=== PATIENT | female | born 2005 | race Caucasian/White ===

== ENCOUNTER → 2024-04-16 14:23 | Outpatient (REF) | payer BC, SELFPAY ==
[2024-04-16 15:02] LABS: % Basophils 0.5 % (0-2); % Eosinophils 5.6 % (0-6); % Immature Granulocytes 0.3 % (0-0.5); % Lymphocytes 7.2 % (20.5-51.1); % Monocytes 3.9 % (1.7-9.3); % Neutrophils 82.5 % (42.2-75.2); Absolute Eosinophils 0.4 10^3/uL (0-0.7); Absolute Lymphocytes 0.5 10^3/uL (1.2-3.4); Absolute Monocytes 0.3 10^3/uL (0.1-0.6); Absolute Neutrophils 6.2 10^3/uL (1.4-6.5); Hematocrit 41.8 % (37.0-47.0); Hemoglobin 13.7 g/dL (12.0-16.0); Mean Corp Hgb Conc. 32.8 g/dL (33.0-37.0); Mean Corpuscular Hgb 29.4 pg (27.0-31.0); Mean Corpuscular Volume 89.7 fL (81.0-99.0); Mean Platelet Volume 10.2 fL (7.4-10.4); Nucleated Red Blood Cells % 0 %; Platelet Count 177 10^3/uL (130-400); Red Blood Cell Count 4.66 10^6/uL (4.20-5.40); Red Cell Dist. Width 12.9 % (11.5-14.5); White Blood Cell Count 7.5 10^3/uL (4.8-10.8)
[2024-04-16 16:15] LABS: Erythrocyte Sed Rate 10 mm/hour (0-20)
[2024-04-18 22:55] LABS: ANA, IgG Reflex to HEp-2 None Detected (None Detected)
== END ==
LOC: REG 14:23
PROVIDERS: ATTENDING PHYSICIAN Orthopaedic Surgery; FAMILY PHYSICIAN Nurse Practitioner Family
DX: M76.52 Patellar tendinitis, left knee (principal); M25.562 Pain in left knee; M62.9 Disorder of muscle, unspecified; M92.522 Juvenile osteochondrosis of tibia tubercle, left leg
CPT/HCPCS: 36415; 85025; 85652; 86038; 86140; 86430; 86618

== ENCOUNTER → 2024-06-01 08:39 | Outpatient (REF) | payer BC, SELFPAY | LOC: RAD 08:39 | PROVIDERS: ATTENDING PHYSICIAN Nurse Practitioner Family | DX: M41.124 Adolescent idiopathic scoliosis, thoracic region (principal) | CPT/HCPCS: 72072 ==

== ENCOUNTER 2025-03-18 09:08 | Emergency (ER) | payer BC, SELFPAY ==
[2025-03-18] VITALS (18 sets, daily range): BP systolic 85–101; BP diastolic 55–72; PULSE 62–75; BMI 23.8
--- NOTE | 2025-03-18 09:58 | ED.GENMED ---
History of Present Illness
General
Chief Complaint: Fainting/Passed Out
Time Seen by Provider: 03/18/25 09:10
History of Present Illness
History of Present Illness:
19-year-old female without significant past medical history presenting to the emergency department after a syncopal episode. Patient reports that she has scoliosis so she was at outpatient x-ray to get a routine x-ray. Prior to the x-ray, had
laboratory analysis drawn. Does note that she has issues with needlesticks. She got the blood work completed. She stood up to go to the x-ray and then started to feel lightheaded. She was then sat down and had a syncopal episode. Patient was
then brought to the ER for further evaluation. She notes that she is feeling much better. Per staff that brought her over, patient was out for several minutes. Does note that she has had syncopal episodes in the past, however nothing recent.
Does note that she did not eat anything prior to arrival. Denies any prodromal chest pain or difficulty breathing. Denies fever or recent illness. Denies additional acute medical complaints
Phy Exam
Physical Exam
Physical Exam:
General: Well-appearing, no clinical signs of dehydration, nontoxic and in no acute distress
HEENT: protecting airway
Neck: appears supple
CV: Normal heart rate, regular rhythm, no evidence of cyanosis
Resp: No accessory muscle use, no increased work of breathing, lungs clear to auscultation bilaterally
Abd: Soft and non-distended, no tenderness to palpation
Extremities: No deformities, no swelling
Neuro: alert, no focal neurologic deficit
: deferred
Rectal: deferred
Psych: Normal affect
Skin: Intact
Course
Orders/Labs/Results
Orders:
Orders
03/18/25 09:16
EKG [Electrocardiogram (*1)] Urgent
Reason for Study: Syncope
EKG- Treatment ONCE
03/18/25 10:04
Test Result ONCE
03/18/25 10:53
Add On- LAB Urgent
Tests Added?: serum preg
03/18/25 11:17
, Urine Qualitative Screen [HCG, Urine Qualitative Screen] Urgent
Date Specimen was Collected: 03/18/25
Time Specimen was Collected: 11:16
Urinalysis Reflex To Culture Urgent
Date Specimen was Collected: 03/18/25
Time Specimen was Collected: 11:16
Urine Microscopic Reflex Cult Urgent
Abnormal Lab Results
03/18/25
11:17
Urine Bacteria (Reflex) Few A
(Negative)
Urine Albumin (Reflex) 2+ A
(Neg - Trace)
Vital Signs
Initial and Last Documented VS:
Initial Vital Signs
Pulse Resp BP
63 9 94/63
03/18/25 09:11 03/18/25 09:11 03/18/25 09:11
Last Documented Vital Signs
Temp Pulse Resp BP Pulse Ox
98.5 F 72 22 94/60 98
03/18/25 09:22 03/18/25 12:36 03/18/25 12:36 03/18/25 12:36 03/18/25 12:15
MDM/Problems Addressed
MDM/Problems Addressed:
19-year-old female presenting after syncopal episode. Vital signs on arrival are normal.
On exam patient is resting comfortably, no acute distress or discomfort. Unremarkable cardiac and pulmonary exam. EKG obtained, nonischemic, no arrhythmia. Ultimately suspect that patient's symptoms are from a vasovagal episode. Note the
syncopal episode happened after blood drawl and is squeamish with blood, also did not have anything to eat this morning.. Hemodynamically stable at this time. Unremarkable neurologic exam. Plan for screening laboratory analysis, oral hydration,
urinalysis.
12:05 - Labs are unremarkable. Patient remains hemodynamic stable. At this time feel stable for discharge. Return precautions discussed and patient verbalized understanding
*EKG
Interpreted by ED Provider?: Yes
EKG Intrepretation Date: 03/18/25
EKG Intrepretation Time: 10:05
Interpretation: normal
Comparison EKG: no comparison EKG present
Heart Rate: 57
Rate: bradycardiac
Rhythm: sinus
Frostproof: normal axis
Interval: normal interval
QRS Pattern: normal QRS
Ischemia: no ischemia
*Critical Care Note
Total Time (30-74mins, 75-104mins- exclusive of procedures): Not Applicable
ED Attending Note
-
Portions of this chart may have been created with voice recognition software.� Occasional wrong word or��sound alike� substitutions may have occurred due to the inherent limitations of voice recognition software.
Discharge Plan
Departure
Patient Disposition: Home (Routine Discharge)
Date of Disposition: 03/18/25
Time of Disposition: 12:08
Patient with high blood pressure during this ER visit?: No
Condition: Good
Discharge Problem:
Syncope
Instructions: Syncope (Fainting) (DC)
Referrals:
Ni Cox CRNP [Family Provider, Internal Medicine]
Activity Restrictions/Additional Instructions:
You were seen in the emergency department for passing out
You were found to have reassuring laboratory analysis and EKG.
Please follow-up closely with your primary care physician.
Return to the emergency department for any worsening of your symptoms, or any development of chest pain, difficulty breathing, abdominal pain with persistent vomiting and inability to tolerate food or liquid by mouth (concern for dehydration),
weakness, headache or confusion, fever greater than 100.4, or any additional symptoms that are concerning to you.
Thank you for choosing [facility].
Interventions
Interventions:
*Risk Screen - Suicide Last Done: 03/18/25 09:37
*General Assessment Last Done: 03/18/25 09:22
*Neglect/Abuse Screening Last Done: 03/18/25 09:37
*ED- Fall Risk Assessment Last Done: 03/18/25 09:22
*ED COVID-19 Vaccine History Last Done: 03/18/25 09:22
*Nursing Disposition Last Done: 03/18/25 13:26
ED- Cardiac Assessment Last Done: 03/18/25 09:17
ED- Neurological Assessment Last Done: 03/18/25 09:17
Discharge Date and Time
Discharge Date/Time: 03/18/25 13:28
Print Language: COMORAN
[2025-03-18 11:51] LABS: HCG, Urine Qualitative Screen Negative
[2025-03-18 11:57] LABS: Urine Albumin 2+ (Neg - Trace); Urine Bilirubin Negative (Negative); Urine Character Clear (Clear); Urine Color Amber; Urine Glucose Negative (Negative); Urine Ketone Negative (Negative); Urine Leukocyte Negative (Negative); Urine Nitrite Negative (Negative); Urine Occult Blood Negative (Negative); Urine Urobilinogen Negative (Neg - 1+)
[2025-03-18 12:05] LABS: Urine Bacteria Few (Negative); Urine Red Blood Cell 0-2 /HPF (0-2); Urine White Cell 0-2 /HPF (0-5)
== END 2025-03-18 13:28 | disposition home or self-care (01) ==
LOC: EMR 09:08
PROVIDERS: EMERGENCY PHYSICIAN Student in an Organized Health Care Education/Training Program; FAMILY PHYSICIAN Nurse Practitioner Family
DX: R55 Syncope and collapse (principal)
CPT/HCPCS: 99283; 36415; 72082; 80053; 80061; 81003; 81015; 81025; 84443; 85025; 93005